=== PATIENT | male | born 1930 | race Caucasian/White ===

== ENCOUNTER 2018-12-09 08:00 | Inpatient (IN) | payer MEDICARE, OTHER ==
[2018-12-09 08:26] LABS: ADD MAN DIFF? NO
[2018-12-09 08:28] LABS: BASOPHILS % 0.2 % (0.0-2.0); EOSINOPHILS # 0.4 10^3/ul (0.0-0.5); EOSINOPHILS % 5.8 % (0.0-7.0); HEMATOCRIT 25.4 % (42.0-52.0); HEMOGLOBIN 7.5 g/dl (14.0-18.0); LYMPHOCYTES # 0.8 10^3/ul (0.8-2.9); LYMPHOCYTES % 13.1 % (15.0-51.0); MEAN CORPUSCULAR HEMOGLOBIN 26.6 pg (29.0-33.0); MEAN CORPUSCULAR HGB CONC 29.5 g/dl (32.0-37.0); MEAN CORPUSCULAR VOLUME 90.1 fl (82.0-101.0); MEAN PLATELET VOLUME 10.3 fl (7.4-10.4); MONOCYTE # 0.5 10^3/ul (0.3-0.9); MONOCYTES % 7.8 % (0.0-11.0); NEUTROPHIL # 4.4 10^3/ul (1.6-7.5); NEUTROPHILS % 72.8 % (39.0-77.0); PLATELET COUNT 122 10^3/UL (140-415); POSITIVE DIFF @See below; RED BLOOD COUNT 2.82 10^6/ul (4.70-6.10); RED CELL DISTRIBUTION WIDTH 17.8 % (11.5-14.5)
[2018-12-09 08:45] LABS: ANION GAP 7 (5-13); BLOOD UREA NITROGEN 24 mg/dl (7-20); CALCIUM 8.6 mg/dl (8.4-10.2); CARBON DIOXIDE 26 mmol/L (21-31); CHLORIDE 106 mmol/L (97-110); CREATININE 1.08 mg/dl (0.61-1.24); GLUCOSE 141 mg/dl (70-220); POTASSIUM 3.8 mmol/L (3.5-5.1); SODIUM 139 mmol/L (135-144)
[2018-12-09] MEDS: SOD CHLORIDE 0.9% 0 ML IV (09:02)
[2018-12-09] MEDS ORDERED: ONDANSETRON 4 MG INJ IV ×2 (09:30→17:30)
[2018-12-09] MEDS ORDERED: ACETAMINOPHEN 325 MG TAB PO ×2 (09:30→17:30)
[2018-12-09 10:52] LABS: IMMEDIATE SPIN CROSSMATCH 1 1
[2018-12-09] MEDS: DIPHTH/TET/ACEL PERTUSS (ADULT) 0.5 ML VIAL IM* (12:03)
[2018-12-09 14:52] LABS: TOTAL IRON BINDING CAPACITY 234 ug/dl (241-421)
[2018-12-09 15:10] LABS: HEMOGLOBIN A1C 5.5 % (0-5.9)
[2018-12-09 15:50] LABS: IRON < 10 ug/dl (35-150)
[2018-12-09] MEDS ORDERED: HYDROCODONE/APAP (5/325) TAB PO (17:30)
[2018-12-09] MEDS: SOD FERRIC GLUC COMPLX 125 MG in SOD CHLORIDE 0.9% 100 ML IVPB (18:46)
[2018-12-09 19:13] LABS: HEMOGLOBIN 8.8 g/dl (14.0-18.0)
[2018-12-09] MEDS: METOPROLOL 25 MG TAB PO (20:11)
[2018-12-09 20:21] LABS: FREE T4 (FREE THYROXINE) 1.08 ng/dl (0.85-1.93)
[2018-12-09 21:11] LABS: FOLATE 4.6 ng/ml (2.8-20.0)
[2018-12-10 06:47] LABS: ADD MAN DIFF? NO
[2018-12-10 06:53] LABS: WHITE BLOOD COUNT 5.2 10^3/ul (4.8-10.8)
[2018-12-10 06:53] LABS: BASOPHILS % 0.2 % (0.0-2.0); EOSINOPHILS # 0.4 10^3/ul (0.0-0.5); EOSINOPHILS % 7.1 % (0.0-7.0); HEMATOCRIT 30.2 % (42.0-52.0); HEMOGLOBIN 9.2 g/dl (14.0-18.0); LYMPHOCYTES # 0.6 10^3/ul (0.8-2.9); LYMPHOCYTES % 11.9 % (15.0-51.0); MEAN CORPUSCULAR HEMOGLOBIN 26.7 pg (29.0-33.0); MEAN CORPUSCULAR HGB CONC 30.5 g/dl (32.0-37.0); MEAN CORPUSCULAR VOLUME 87.8 fl (82.0-101.0); MEAN PLATELET VOLUME 11.3 fl (7.4-10.4); MONOCYTE # 0.4 10^3/ul (0.3-0.9); MONOCYTES % 7.5 % (0.0-11.0); NEUTROPHIL # 3.8 10^3/ul (1.6-7.5); NEUTROPHILS % 73.1 % (39.0-77.0); PLATELET COUNT 153 10^3/UL (140-415); RED BLOOD COUNT 3.44 10^6/ul (4.70-6.10)
[2018-12-10 07:18] LABS: ALANINE AMINOTRANSFERASE 11 IU/L (13-69); ALBUMIN 2.9 g/dl (3.3-4.9); ALBUMIN/GLOBULIN RATIO 1.07; ALKALINE PHOSPHATASE 67 IU/L (42-121); ANION GAP 6 (5-13); ASPARTATE AMINO TRANSFERASE 16 IU/L (15-46); BILIRUBIN,INDIRECT 0.6 mg/dl (0-1.1); BILIRUBIN,TOTAL 0.6 mg/dl (0.2-1.3); BLOOD UREA NITROGEN 21 mg/dl (7-20); CALCIUM 8.8 mg/dl (8.4-10.2); CARBON DIOXIDE 28 mmol/L (21-31); CHLORIDE 105 mmol/L (97-110); CREATININE 1.04 mg/dl (0.61-1.24); GLUCOSE 86 mg/dl (70-220); SODIUM 139 mmol/L (135-144); TOTAL PROTEIN 5.6 g/dl (6.1-8.1)
[2018-12-10 07:20] LABS: PHOSPHORUS 3.5 mg/dl (2.5-4.9)
[2018-12-10 07:20] LABS: B-TYPE NATRIURETIC PEPTIDE 2240 PG/ML (0-450); CHOL/HDL RATIO 3.8 RATIO; CHOLESTEROL 137 mg/dl (100-200); CREATINE KINASE < 20 IU/L (23-200); HDL CHOLESTEROL 36 mg/dl (31-75); LDL CHOLESTEROL,CALCULATED 84 mg/dl; MAGNESIUM 1.8 mg/dl (1.7-2.5); TRIGLYCERIDES 86 mg/dl (0-149)
[2018-12-10 07:21] LABS: INR 1.06; PARTIAL THROMBOPLASTIN TIME 37.1 Sec (23.0-35.0); PROTIME 13.9 Sec (11.9-14.9); PT RATIO 1.1
[2018-12-10 07:24] LABS: CK-MB 0.39 ng/ml (0.0-2.4); TROPONIN-I 0.048 ng/ml (0.000-0.120)
[2018-12-10] MEDS: SOD CHLORIDE 0.9% 100 ML (09:11)
[2018-12-10] MEDS: IODIXANOL LOCM 100 ML BTL (09:12)
[2018-12-10] MEDS: METOPROLOL 25 MG TAB PO ×2 (09:49→21:44)
[2018-12-10] MEDS ORDERED: LIDOCAINE 1% (MDV) 20 ML INJ (17:04)
[2018-12-10] MEDS ORDERED: IODIXANOL LOCM 100 ML BTL (17:04)
[2018-12-10] MEDS ORDERED: FENTAnyl 50 MCG/ML VIAL (17:51)
[2018-12-10] MEDS ORDERED: MIDAZOLAM 1 MG/ML 2 ML INJ (17:51)
[2018-12-10] MEDS: SOD FERRIC GLUC COMPLX 125 MG in SOD CHLORIDE 0.9% 100 ML IVPB (19:01)
[2018-12-10] MEDS ORDERED: POLYETHYLENE GLYCOL 3350 119 GM POWDER PO (20:00)
[2018-12-10] MEDS: ASPIRIN 81 MG TAB PO (21:42)
[2018-12-10] MEDS: LACTULOSE 30ML CUP PO (21:44)
[2018-12-10] MEDS: POLYETHYLENE GLYCOL 3350 119 GM POWDER PO (21:45)
[2018-12-10] MEDS: ATORVASTATIN 40 MG TAB PO (21:45)
[2018-12-10 23:35] LABS: AMPHETAMINE/METHAMPHETAMINE Negative (NEGATIVE); BARBITURATES Negative (NEGATIVE); BENZODIAZEPINES Negative (NEGATIVE); CANNABINOIDS Negative (NEGATIVE); COCAINE Negative (NEGATIVE); OPIATES Negative (NEGATIVE)
[2018-12-11] MEDS: LACTULOSE 30ML CUP PO ×8 (01:58→21:24)
[2018-12-11 06:27] LABS: ADD MAN DIFF? NO
[2018-12-11 06:34] LABS: BASOPHILS % 0.1 % (0.0-2.0); EOSINOPHILS # 0.1 10^3/ul (0.0-0.5); HEMATOCRIT 34.2 % (42.0-52.0); HEMOGLOBIN 10.6 g/dl (14.0-18.0); LYMPHOCYTES # 0.6 10^3/ul (0.8-2.9); LYMPHOCYTES % 9.2 % (15.0-51.0); MEAN CORPUSCULAR HEMOGLOBIN 26.9 pg (29.0-33.0); MEAN CORPUSCULAR VOLUME 86.8 fl (82.0-101.0); MONOCYTE # 0.4 10^3/ul (0.3-0.9); MONOCYTES % 6.3 % (0.0-11.0); NEUTROPHIL # 5.6 10^3/ul (1.6-7.5); NEUTROPHILS % 82.1 % (39.0-77.0); PLATELET COUNT 164 10^3/UL (140-415); RED BLOOD COUNT 3.94 10^6/ul (4.70-6.10)
[2018-12-11 06:34] LABS: WHITE BLOOD COUNT 6.9 10^3/ul (4.8-10.8)
[2018-12-11] MEDS ORDERED: PROPOFOL 200 MG INJ (07:00)
[2018-12-11 07:05] LABS: PHOSPHORUS 4.7 mg/dl (2.5-4.9)
[2018-12-11 07:05] LABS: ANION GAP 7 (5-13); BLOOD UREA NITROGEN 21 mg/dl (7-20); CALCIUM 9.5 mg/dl (8.4-10.2); CARBON DIOXIDE 25 mmol/L (21-31); CHLORIDE 108 mmol/L (97-110); GLUCOSE 103 mg/dl (70-220); POTASSIUM 4.1 mmol/L (3.5-5.1); SODIUM 140 mmol/L (135-144)
[2018-12-11] MEDS: ASPIRIN 81 MG TAB PO ×2 (09:00→15:33)
[2018-12-11] MEDS: METOPROLOL 25 MG TAB PO ×2 (09:27→21:25)
[2018-12-11] MEDS ORDERED: PROPOFOL 40 ML (11:05)
[2018-12-11] MEDS ORDERED: LIDOCAINE 100 MG SYRINGE (11:05)
[2018-12-11] MEDS ORDERED: ONDANSETRON 4 MG INJ IV (11:30)
[2018-12-11] MEDS ORDERED: METOCLOPRAMIDE 10 MG INJ IV (11:30)
[2018-12-11] MEDS: IODIXANOL LOCM 100 ML BTL (14:18)
[2018-12-11] MEDS: SOD CHLORIDE 0.9% 100 ML (14:18)
[2018-12-11] MEDS: SOD FERRIC GLUC COMPLX 125 MG in SOD CHLORIDE 0.9% 100 ML IVPB (15:29)
[2018-12-11 19:23] LABS: RAPID PLASMA REAGIN NONREACTIVE (NR)
[2018-12-11] MEDS: ATORVASTATIN 40 MG TAB PO (21:24)
[2018-12-12] MEDS: LACTULOSE 30ML CUP PO ×6 (01:00→21:05)
[2018-12-12 06:27] LABS: ADD MAN DIFF? NO
[2018-12-12 06:34] LABS: BASOPHILS % 0.2 % (0.0-2.0); EOSINOPHILS # 0.2 10^3/ul (0.0-0.5); EOSINOPHILS % 2.3 % (0.0-7.0); HEMATOCRIT 31.8 % (42.0-52.0); HEMOGLOBIN 9.8 g/dl (14.0-18.0); LYMPHOCYTES # 0.7 10^3/ul (0.8-2.9); LYMPHOCYTES % 10.3 % (15.0-51.0); MEAN CORPUSCULAR HEMOGLOBIN 26.8 pg (29.0-33.0); MEAN CORPUSCULAR HGB CONC 30.8 g/dl (32.0-37.0); MEAN CORPUSCULAR VOLUME 87.1 fl (82.0-101.0); MEAN PLATELET VOLUME 10.8 fl (7.4-10.4); MONOCYTE # 0.7 10^3/ul (0.3-0.9); MONOCYTES % 10.9 % (0.0-11.0); NEUTROPHIL # 4.9 10^3/ul (1.6-7.5); PLATELET COUNT 159 10^3/UL (140-415); RED BLOOD COUNT 3.65 10^6/ul (4.70-6.10); RED CELL DISTRIBUTION WIDTH 16.9 % (11.5-14.5)
[2018-12-12 06:34] LABS: WHITE BLOOD COUNT 6.5 10^3/ul (4.8-10.8)
[2018-12-12 06:51] LABS: ALANINE AMINOTRANSFERASE 10 IU/L (13-69); ALBUMIN/GLOBULIN RATIO 1.03; ALKALINE PHOSPHATASE 73 IU/L (42-121); ANION GAP 10 (5-13); ASPARTATE AMINO TRANSFERASE 16 IU/L (15-46); BILIRUBIN,INDIRECT 0.5 mg/dl (0-1.1); BILIRUBIN,TOTAL 0.5 mg/dl (0.2-1.3); BLOOD UREA NITROGEN 22 mg/dl (7-20); CALCIUM 9.1 mg/dl (8.4-10.2); CARBON DIOXIDE 26 mmol/L (21-31); CHLORIDE 106 mmol/L (97-110); CREATININE 1.38 mg/dl (0.61-1.24); GLUCOSE 111 mg/dl (70-220); POTASSIUM 3.9 mmol/L (3.5-5.1); SODIUM 142 mmol/L (135-144); TOTAL PROTEIN 5.9 g/dl (6.1-8.1)
[2018-12-12 06:59] LABS: PHOSPHORUS 4.6 mg/dl (2.5-4.9)
[2018-12-12] MEDS: ASPIRIN 81 MG TAB PO (08:48)
[2018-12-12] MEDS: METOPROLOL 25 MG TAB PO ×2 (08:48→21:07)
[2018-12-12] MEDS: SOD FERRIC GLUC COMPLX 125 MG in SOD CHLORIDE 0.9% 100 ML IVPB (12:02)
[2018-12-12] MEDS ORDERED: SOD FERRIC GLUC COMPLX 125 MG in SOD CHLORIDE 0.9% 100 ML IVPB (17:00)
[2018-12-12] MEDS: SOD CHLORIDE 0.9% 1,000 ML IV (17:47)
[2018-12-12] MEDS: PANTOPRAZOLE (EC) 40 MG TAB PO (17:52)
[2018-12-12] MEDS: CLARITHROMYCIN 500 MG TAB PO (21:06)
[2018-12-12] MEDS: AMOXICILLIN 500 MG CAP PO (21:06)
[2018-12-12] MEDS: ATORVASTATIN 40 MG TAB PO (21:06)
[2018-12-13] MEDS: LACTULOSE 30ML CUP PO ×6 (01:29→21:51)
[2018-12-13 05:52] LABS: ADD MAN DIFF? NO
[2018-12-13 05:54] LABS: BASOPHILS % 0.1 % (0.0-2.0); EOSINOPHILS % 0.1 % (0.0-7.0); HEMATOCRIT 33.3 % (42.0-52.0); HEMOGLOBIN 10.3 g/dl (14.0-18.0); LYMPHOCYTES # 0.6 10^3/ul (0.8-2.9); LYMPHOCYTES % 5.3 % (15.0-51.0); MEAN CORPUSCULAR HEMOGLOBIN 26.9 pg (29.0-33.0); MEAN CORPUSCULAR HGB CONC 30.9 g/dl (32.0-37.0); MEAN CORPUSCULAR VOLUME 86.9 fl (82.0-101.0); MEAN PLATELET VOLUME 10.7 fl (7.4-10.4); MONOCYTE # 0.5 10^3/ul (0.3-0.9); MONOCYTES % 4.8 % (0.0-11.0); NEUTROPHILS % 89.2 % (39.0-77.0); PLATELET COUNT 155 10^3/UL (140-415); RED BLOOD COUNT 3.83 10^6/ul (4.70-6.10); RED CELL DISTRIBUTION WIDTH 16.9 % (11.5-14.5)
[2018-12-13 05:54] LABS: WHITE BLOOD COUNT 11.2 10^3/ul (4.8-10.8)
[2018-12-13 06:22] LABS: ALANINE AMINOTRANSFERASE 10 IU/L (13-69); ALBUMIN 3.2 g/dl (3.3-4.9); ALBUMIN/GLOBULIN RATIO 1.06; ALKALINE PHOSPHATASE 81 IU/L (42-121); ANION GAP 6 (5-13); ASPARTATE AMINO TRANSFERASE 17 IU/L (15-46); BILIRUBIN,INDIRECT 0.5 mg/dl (0-1.1); BILIRUBIN,TOTAL 0.5 mg/dl (0.2-1.3); BLOOD UREA NITROGEN 18 mg/dl (7-20); CALCIUM 9.5 mg/dl (8.4-10.2); CARBON DIOXIDE 26 mmol/L (21-31); CHLORIDE 110 mmol/L (97-110); CREATININE 1.56 mg/dl (0.61-1.24); GLUCOSE 126 mg/dl (70-220); MAGNESIUM 1.9 mg/dl (1.7-2.5); SODIUM 142 mmol/L (135-144); TOTAL PROTEIN 6.2 g/dl (6.1-8.1)
[2018-12-13 06:22] LABS: PHOSPHORUS 4.3 mg/dl (2.5-4.9)
[2018-12-13] MEDS: SOD CHLORIDE 0.9% 1,000 ML IV ×2 (06:50→20:10)
[2018-12-13] MEDS: PANTOPRAZOLE (EC) 40 MG TAB PO ×2 (07:00→18:19)
[2018-12-13] MEDS: AMOXICILLIN 500 MG CAP PO ×2 (08:11→21:51)
[2018-12-13] MEDS: ASPIRIN 81 MG TAB PO (08:11)
[2018-12-13] MEDS: METOPROLOL 25 MG TAB PO ×2 (08:11→21:52)
[2018-12-13] MEDS: CLARITHROMYCIN 500 MG TAB PO ×2 (08:11→21:52)
[2018-12-13] MEDS: SOD FERRIC GLUC COMPLX 125 MG in SOD CHLORIDE 0.9% 100 ML IVPB (13:23)
[2018-12-13 13:58] LABS: ADD UMIC YES; UR ASCORBIC ACID NEGATIVE (NEGATIVE); UR BILIRUBIN (Dip) NEGATIVE (NEGATIVE); UR BLOOD (Dip) 2+ mg/dL (NEGATIVE); UR CLARITY CLEAR (CLEAR); UR COLOR YELLOW (YELLOW); UR GLUCOSE (Dip) NEGATIVE (NEGATIVE); UR KETONES (Dip) NEGATIVE (NEGATIVE); UR LEUKOCYTE ESTERASE (Dip) NEGATIVE Leu/ul (NEGATIVE); UR NITRITE (Dip) NEGATIVE (NEGATIVE); UR RBC 6 /HPF (0-5); UR SPECIFIC GRAVITY (Dip) 1.019 (1.003-1.030); UR TOTAL PROTEIN (Dip) NEGATIVE (NEGATIVE); UR UROBILINOGEN (Dip) NEGATIVE (NEGATIVE); UR WBC 2 /HPF (0-5)
[2018-12-13] MEDS ORDERED: HEPARIN 1000 UNITS/ML 10 ML INJ IV ×2 (14:00)
[2018-12-13 14:10] LABS: SODIUM,URINE RANDOM 63 mmol/L (30-90)
[2018-12-13 14:37] LABS: ADD MAN DIFF? NO
[2018-12-13 14:40] LABS: WHITE BLOOD COUNT 7.4 10^3/ul (4.8-10.8)
[2018-12-13 14:40] LABS: EOSINOPHILS % 0.1 % (0.0-7.0); HEMATOCRIT 31.4 % (42.0-52.0); HEMOGLOBIN 9.6 g/dl (14.0-18.0); LYMPHOCYTES # 0.7 10^3/ul (0.8-2.9); LYMPHOCYTES % 9.6 % (15.0-51.0); MEAN CORPUSCULAR HGB CONC 30.6 g/dl (32.0-37.0); MEAN CORPUSCULAR VOLUME 88.2 fl (82.0-101.0); MEAN PLATELET VOLUME 10.8 fl (7.4-10.4); MONOCYTE # 0.5 10^3/ul (0.3-0.9); NEUTROPHIL # 6.2 10^3/ul (1.6-7.5); PLATELET COUNT 142 10^3/UL (140-415); RED BLOOD COUNT 3.56 10^6/ul (4.70-6.10); RED CELL DISTRIBUTION WIDTH 16.6 % (11.5-14.5)
[2018-12-13 14:52] LABS: PROTIME 15.3 Sec (11.9-14.9); PT RATIO 1.2
[2018-12-13] MEDS: HEPARIN 1000 UNITS/ML 10 ML INJ IV (16:15)
[2018-12-13] MEDS: HEPARIN 25000 UNITS/250 ML 250 ML IV (16:16)
[2018-12-13 21:32] LABS: PARTIAL THROMBOPLASTIN TIME 197.1 Sec (23.0-35.0)
[2018-12-13] MEDS: ATORVASTATIN 40 MG TAB PO (21:52)
[2018-12-14] MEDS: LACTULOSE 30ML CUP PO ×6 (00:29→20:40)
[2018-12-14 01:27] LABS: PARTIAL THROMBOPLASTIN TIME 42.5 Sec (23.0-35.0)
[2018-12-14 03:27] LABS: PARTIAL THROMBOPLASTIN TIME 49.3 Sec (23.0-35.0)
[2018-12-14 06:24] LABS: ADD MAN DIFF? NO
[2018-12-14 06:39] LABS: BASOPHILS % 0.2 % (0.0-2.0); EOSINOPHILS # 0.2 10^3/ul (0.0-0.5); EOSINOPHILS % 3.6 % (0.0-7.0); HEMATOCRIT 28.6 % (42.0-52.0); HEMOGLOBIN 8.8 g/dl (14.0-18.0); LYMPHOCYTES # 0.9 10^3/ul (0.8-2.9); LYMPHOCYTES % 17.9 % (15.0-51.0); MEAN CORPUSCULAR HEMOGLOBIN 27.1 pg (29.0-33.0); MEAN CORPUSCULAR HGB CONC 30.8 g/dl (32.0-37.0); MEAN PLATELET VOLUME 11.1 fl (7.4-10.4); MONOCYTE # 0.4 10^3/ul (0.3-0.9); MONOCYTES % 8.2 % (0.0-11.0); NEUTROPHIL # 3.3 10^3/ul (1.6-7.5); NEUTROPHILS % 69.7 % (39.0-77.0); PLATELET COUNT 131 10^3/UL (140-415); POSITIVE DIFF @See below; RED BLOOD COUNT 3.25 10^6/ul (4.70-6.10); RED CELL DISTRIBUTION WIDTH 16.7 % (11.5-14.5)
[2018-12-14 06:39] LABS: WHITE BLOOD COUNT 4.7 10^3/ul (4.8-10.8)
[2018-12-14] MEDS: PANTOPRAZOLE (EC) 40 MG TAB PO ×2 (06:50→17:57)
[2018-12-14 07:17] LABS: ALANINE AMINOTRANSFERASE 17 IU/L (13-69); ALBUMIN 2.5 g/dl (3.3-4.9); ALBUMIN/GLOBULIN RATIO 0.89; ALKALINE PHOSPHATASE 66 IU/L (42-121); ANION GAP 5 (5-13); ASPARTATE AMINO TRANSFERASE 13 IU/L (15-46); BILIRUBIN,INDIRECT 0.5 mg/dl (0-1.1); BILIRUBIN,TOTAL 0.5 mg/dl (0.2-1.3); BLOOD UREA NITROGEN 17 mg/dl (7-20); CALCIUM 8.7 mg/dl (8.4-10.2); CARBON DIOXIDE 25 mmol/L (21-31); CHLORIDE 112 mmol/L (97-110); CREATININE 1.21 mg/dl (0.61-1.24); GLUCOSE 87 mg/dl (70-220); POTASSIUM 3.2 mmol/L (3.5-5.1); SODIUM 142 mmol/L (135-144); TOTAL PROTEIN 5.3 g/dl (6.1-8.1)
[2018-12-14 07:22] LABS: PARTIAL THROMBOPLASTIN TIME 78.3 Sec (23.0-35.0)
[2018-12-14 07:29] LABS: MAGNESIUM 1.8 mg/dl (1.7-2.5)
[2018-12-14 07:29] LABS: PHOSPHORUS 3.6 mg/dl (2.5-4.9)
[2018-12-14] MEDS: METOPROLOL 25 MG TAB PO ×2 (08:46→20:40)
[2018-12-14] MEDS: AMOXICILLIN 500 MG CAP PO ×2 (08:48→20:39)
[2018-12-14] MEDS: ASPIRIN 81 MG TAB PO (08:48)
[2018-12-14] MEDS: CLARITHROMYCIN 500 MG TAB PO ×2 (08:48→20:40)
[2018-12-14] MEDS: SOD CHLORIDE 0.9% 1,000 ML IV (08:55)
[2018-12-14] MEDS: SOD FERRIC GLUC COMPLX 125 MG in SOD CHLORIDE 0.9% 100 ML IVPB (13:55)
[2018-12-14 15:25] LABS: PARTIAL THROMBOPLASTIN TIME 56.8 Sec (23.0-35.0)
[2018-12-14] MEDS: APIXABAN 5 MG TABLET PO (20:40)
[2018-12-14] MEDS: ATORVASTATIN 40 MG TAB PO (20:40)
[2018-12-15] MEDS: LACTULOSE 30ML CUP PO ×4 (01:00→12:46)
[2018-12-15 06:34] LABS: ADD MAN DIFF? NO
[2018-12-15] MEDS: PANTOPRAZOLE (EC) 40 MG TAB PO (06:40)
[2018-12-15 06:43] LABS: WHITE BLOOD COUNT 5.6 10^3/ul (4.8-10.8)
[2018-12-15 06:43] LABS: BASOPHILS % 0.2 % (0.0-2.0); EOSINOPHILS # 0.3 10^3/ul (0.0-0.5); EOSINOPHILS % 5.2 % (0.0-7.0); HEMATOCRIT 32.9 % (42.0-52.0); HEMOGLOBIN 10.1 g/dl (14.0-18.0); LYMPHOCYTES # 0.8 10^3/ul (0.8-2.9); LYMPHOCYTES % 14.2 % (15.0-51.0); MEAN CORPUSCULAR HEMOGLOBIN 27.2 pg (29.0-33.0); MEAN CORPUSCULAR HGB CONC 30.7 g/dl (32.0-37.0); MEAN CORPUSCULAR VOLUME 88.7 fl (82.0-101.0); MEAN PLATELET VOLUME 11.3 fl (7.4-10.4); MONOCYTE # 0.4 10^3/ul (0.3-0.9); MONOCYTES % 7.7 % (0.0-11.0); NEUTROPHIL # 4.1 10^3/ul (1.6-7.5); NEUTROPHILS % 72.3 % (39.0-77.0); PLATELET COUNT 160 10^3/UL (140-415); RED BLOOD COUNT 3.71 10^6/ul (4.70-6.10); RED CELL DISTRIBUTION WIDTH 16.1 % (11.5-14.5)
[2018-12-15 07:09] LABS: ALANINE AMINOTRANSFERASE 12 IU/L (13-69); ALBUMIN 2.8 g/dl (3.3-4.9); ALBUMIN/GLOBULIN RATIO 0.96; ALKALINE PHOSPHATASE 71 IU/L (42-121); ANION GAP 9 (5-13); ASPARTATE AMINO TRANSFERASE 18 IU/L (15-46); BILIRUBIN,INDIRECT 0.5 mg/dl (0-1.1); BILIRUBIN,TOTAL 0.5 mg/dl (0.2-1.3); BLOOD UREA NITROGEN 16 mg/dl (7-20); CALCIUM 8.5 mg/dl (8.4-10.2); CARBON DIOXIDE 25 mmol/L (21-31); CHLORIDE 107 mmol/L (97-110); CREATININE 0.97 mg/dl (0.61-1.24); GLUCOSE 90 mg/dl (70-220); POTASSIUM 3.2 mmol/L (3.5-5.1); SODIUM 141 mmol/L (135-144); TOTAL PROTEIN 5.7 g/dl (6.1-8.1)
[2018-12-15 07:19] LABS: MAGNESIUM 1.6 mg/dl (1.7-2.5)
[2018-12-15 07:19] LABS: PHOSPHORUS 3.5 mg/dl (2.5-4.9)
[2018-12-15] MEDS: METOPROLOL 25 MG TAB PO (08:05)
[2018-12-15] MEDS: POTASSIUM CHLORIDE (SR) 20 MEQ TAB PO (08:06)
[2018-12-15] MEDS: AMOXICILLIN 500 MG CAP PO (08:06)
[2018-12-15] MEDS: ASPIRIN 81 MG TAB PO (08:07)
[2018-12-15] MEDS: CLARITHROMYCIN 500 MG TAB PO (08:07)
[2018-12-15] MEDS: APIXABAN 5 MG TABLET PO (08:07)
[2018-12-15] MEDS: MAGNESIUM SULFATE 2 GM/50 ML 50 ML IVPB (09:47)
[2018-12-15] MEDS: TAMSULOSIN (SR) 0.4 MG CAP PO (09:47)
[2018-12-15] MEDS: SOD FERRIC GLUC COMPLX 125 MG in SOD CHLORIDE 0.9% 100 ML IVPB (13:29)
== END 2018-12-15 16:43 | disposition home or self-care (01) | DRG 41 ==
LOC: E/R 08:00 → 6WM 09:05
PROC: 06H03DZ Insertion of Intraluminal Device into Inferior Vena Cava, Percutaneous Approach (ICD-10-PCS; principal; 2018-12-10 16:50)
PROC: 0DB68ZX Excision of Stomach, Via Natural or Artificial Opening Endoscopic, Diagnostic (ICD-10-PCS; 2018-12-10 16:50)
PROC: 0DJD8ZZ Inspection of Lower Intestinal Tract, Via Natural or Artificial Opening Endoscopic (ICD-10-PCS; 2018-12-10 16:50)
PROC: 30233N1 Transfusion of Nonautologous Red Blood Cells into Peripheral Vein, Percutaneous Approach (ICD-10-PCS; 2018-12-10 16:50)
DX: I63.9 Cerebral infarction, unspecified (principal); D62 Acute posthemorrhagic anemia; I82.412 Acute embolism and thrombosis of left femoral vein; I82.432 Acute embolism and thrombosis of left popliteal vein; E44.0 Moderate protein-calorie malnutrition; N17.9 Acute kidney failure, unspecified; Z68.1 Body mass index [BMI] 19.9 or less, adult; C78.00 Secondary malignant neoplasm of unspecified lung; C78.7 Secondary malignant neoplasm of liver and intrahepatic bile duct; J90 Pleural effusion, not elsewhere classified; N13.8 Other obstructive and reflux uropathy; S01.01XA Laceration without foreign body of scalp, initial encounter; I48.2 Chronic atrial fibrillation; I27.20 Pulmonary hypertension, unspecified; K64.4 Residual hemorrhoidal skin tags; D69.6 Thrombocytopenia, unspecified; K29.60 Other gastritis without bleeding; B96.81 Helicobacter pylori [H. pylori] as the cause of diseases classified elsewhere; E87.6 Hypokalemia; E83.42 Hypomagnesemia; N40.1 Benign prostatic hyperplasia with lower urinary tract symptoms; R33.8 Other retention of urine; R55 Syncope and collapse; W22.8XXA Striking against or struck by other objects, initial encounter; Z85.828 Personal history of other malignant neoplasm of skin; Y92.238 Other place in hospital as the place of occurrence of the external cause
CPT/HCPCS: 36415; 36430; 70450; 70496; 70498; 70551; 71045; 71275; 72125; 75940; 76775; 80048; 80053; 80061; 80307; 81001; 82550; 82553; 82607; 82728; 82746; 83036; 83540; 83735; 83880; 84100; 84153; 84154; 84155; 84300; 84439; 84443; 84484; 85014; 85018; 85025; 85610; 85651; 85730; 86592; 86850; 86900; 86901; 86920; 87081; 88305; 88312; 90715; 93005; 93306; 93880; 93970; 95819; 97116; 97161; 97530; 99285-25